=== PATIENT | female | born 1985 | race Caucasian/White ===

== ENCOUNTER 2019-02-04 19:52 | Emergency (ER) | payer OTHER ==
[~2019-02-04] VITALS: Ht 157.5 cm; Wt 86.2 kg
[2019-02-04 21:51] VITALS: BP 127/69
== END 2019-02-04 21:51 | disposition home or self-care (01) ==
LOC: ED 19:52
DX: S09.8XXA Other specified injuries of head, initial encounter (principal); M54.2 Cervicalgia; H92.03 Otalgia, bilateral; J45.909 Unspecified asthma, uncomplicated; F32.9 Major depressive disorder, single episode, unspecified; F41.9 Anxiety disorder, unspecified; Z98.890 Other specified postprocedural states; W22.8XXA Striking against or struck by other objects, initial encounter; Y93.89 Activity, other specified; Y92.89 Other specified places as the place of occurrence of the external cause; Y99.8 Other external cause status